=== PATIENT | female | born 1935 | race Caucasian/White ===

== ENCOUNTER 2017-02-14 17:11 | Emergency (ER) | payer MEDICARE ==
[~2017-02-14] VITALS: Ht 162.6 cm; Wt 57.7 kg
[2017-02-14] MEDS ORDERED: NS 500 ML IV ONE (17:45)
[2017-02-14] MEDS ORDERED: KETOROLAC 30 MG/ML VIAL (J1885) IV ONE (17:45)
[2017-02-14] MEDS ORDERED: ONDANSETRON 4MG/2ML VIAL (J2405) IV ONE (17:45)
[2017-02-14 18:14] LABS: BASO % 0.2 % (0.0-1.0); EOS % 0.4 % (0.0-3.0); LARGE UNSTAINED CELL # 0.1 K/mm3 (0.0-0.4); LARGE UNSTAINED CELL % 0.4 % (0.0-4.0); LYMPH # 0.7 K/mm3 (1.5-4.5); LYMPH % 5.8 % (24.0-44.0); MEAN CORPUSCULAR HEMOGLOBIN 32.2 pg (27.0-33.0); MEAN CORPUSCULAR HGB CONC 32.2 g/dl (32.0-36.5); MEAN CORPUSCULAR VOLUME 99.9 fl (80.0-96.0); MONO # 0.3 K/mm3 (0.0-0.8); MONO % 2.4 % (0.0-5.0); NEUTROPHILS # 10.4 K/mm3 (1.8-7.7); NEUTROPHILS % 90.8 % (36.0-66.0); PLATELET COUNT, AUTOMATED 199 k/mm3 (150-450); RED CELL DISTRIBUTION WIDTH 12.6 % (11.5-14.5); WHITE BLOOD COUNT 11.4 K/mm3 (4.0-10.0)
[2017-02-14 18:33] LABS: ALBUMIN 3.5 GM/DL (3.2-5.2); ALKALINE PHOSPHATASE 98 U/L (45-117); ALT/SGPT 105 U/L (12-78); AMYLASE 47 U/L (25-115); ANION GAP 8 MEQ/L (8-16); AST/SGOT 180 U/L (15-37); BILIRUBIN,DIRECT 0.4 MG/DL (0.0-0.2); BLOOD UREA NITROGEN 15 MG/DL (7-18); CARBON DIOXIDE LEVEL 24 MEQ/L (21-32); CHLORIDE LEVEL 106 MEQ/L (98-107); GLOMERULAR FILTRATION RATE > 60.0 (>32); GLUCOSE, FASTING 133 MG/DL (83-110); POTASSIUM SERUM 3.9 MEQ/L (3.5-5.1); SODIUM LEVEL 138 MEQ/L (136-145); TOTAL PROTEIN 7.4 GM/DL (6.4-8.2)
--- NOTE | 2017-02-14 18:50 | REP ---
Clinical: Right upper quadrant pain. Technique: Real time alan scale ultrasound examination using curved array transducer. Findings: With the exception of mild intrahepatic biliary ductal dilatation, the liver and pancreas are normal in contour, size, and echogenicity without focal hepatic or pancreatic lesions identified. The gallbladder is distended measuring 10.9 cm in length and 4.8 cm diameter demonstrating few layering gallstones, mild wall thickening to 3.5 mm and sonographic Estrada's sign. The common bile duct is dilated to 9.3 mm and findings suggest acute cholecystitis. Incidental note is made of a 4 mm anterior wall gallbladder polyp. Right kidney is normal in reniform shape without hydronephrosis and measures 10.4 x 4.4 x 3.8 cm. No ascites. Impression: 1. Findings related to the gallbladder and biliary system as described above suggest acute cholecystitis and require clinical correlation. 2. Incidental 4 mm gallbladder polyp. Signed by Sal Ryan MD 02/14/2017 06:42 P
[2017-02-14 21:42] VITALS: BP 124/65
[2017-02-14] MEDS ORDERED: ZOFR4TAB3 PO (21:43)
[2017-02-14] MEDS ORDERED: KETO10TAB PO (21:43)
--- NOTE | 2017-02-15 03:38 | ER ---
DATE OF CONSULTATION: 02/14/2017 REASON FOR CONSULTATION: Possible acute cholecystitis. 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 The patient reported that she had been in generally excellent health. She awakened on the morning of 02/14 and had a light breakfast consisting of a cup and a half of coffee and a piece of raisin cinnamon toast. Shortly thereafter she developed some epigastric to right upper quadrant abdominal discomfort. As this worsened somewhat, she developed some nausea and had episodes of vomiting. As her stomach was largely empty, she had primarily dry heaves. Around noon, she noted that the nausea and vomiting had resolved, though the pain had persisted. She described a constant aching sensation with a fullness. She tried a few crackers to see if this would help settle her stomach and developed additional nausea and vomiting with persistence of the pain. She presented to the emergency department at approximately 1711. She was evaluated with some laboratory studies and had a gallbladder ultrasound obtained. The ultrasound showed some findings suggestive of acute cholecystitis and I was asked to evaluate the patient. The patient reports that she currently has no pain. She has had no prior episodes of similar discomfort. She denies any history of hepatitis, pancreatitis, or jaundice. ALLERGIES: The patient denies any known drug allergies, though she avoids aspirin because of a past history of ulcer. MEDICATIONS: The patient is on no prescription or [id number] medications. 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 MEDICAL HISTORY: The patient reported a history of ulcer in the distant past. She denies any cardiac, respiratory, endocrine, gastrointestinal, or genitourinary problems. SOCIAL HISTORY: The patient is accompanied by her . She lives part of the year in [place], but spends [place]ins in [place] and part of the year in [place]. She is a never smoker and reports alcohol intake of one glass of wine per day and she prefers Pinot Grigio. 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 FAMILY HISTORY: The patient reports that her son has had gallbladder problems requiring a cholecystectomy. REVIEW OF SYSTEMS: The complete system review is negative. PHYSICAL EXAMINATION: Reveals that patient's most recent vital signs show a temperature of 97.8 with a pulse of 63, respirations of 16 and a blood pressure of 158/79. Room air pulse oximetry was 99%. Patient is sitting up on a stretcher, alert and cooperative and appears comfortable. She currently denies any pain and has no nausea at this time. Skin is warm and dry. Sclerae are anicteric. Mucous membranes are moist. The neck is thin and supple and she has no carotid bruits. Heart exam shows a regular rate and rhythm. The lungs are clear to auscultation. Breast exam is deferred. Abdomen is thin and flat. She has an old low midline scar. There is no sign of hernia. She has bowel sounds present. There is no tenderness to percussion. On palpation, there is no tenderness identified. She has no palpable mass. Extremities are thin without edema and she has palpable radial and dorsalis pedis pulses bilaterally. LABORATORY STUDIES: From approximately 1800 show a white count of 11, hemoglobin 15, hematocrit of 48 and a platelet count of 199,000. Differential shows 91% neutrophils and 6% lymphocytes. Chemistry profile shows normal electrolytes, BUN, creatinine and a glucose of 133. Total bilirubin is 1.0 with a direct of 0.4, her AST is 180 and her ALT 105, and the alkaline phosphatase is 98. Amylase and lipase are normal. Gallbladder ultrasound was performed. I reviewed the images personally and they were read by Dr. Ryan of radiology. The radiologist reported some mild gallbladder wall thickening to 3.5 mm with some small stones in the dependent portion of the gallbladder. The gallbladder appeared distended to 10.9 cm and there appeared to be a sonographic Estrada's sign. The common bile duct was on one measurement dilated to 9.3 mm. An anterior wall gallbladder polyp 4 mm in diameter was identified. On my review of the images, the thickness of the gallbladder wall is certainly not significantly thickened. There are some small stones seen. IMPRESSION: First episode of right upper quadrant pain with possible gallbladder wall thickening and gallstones by ultrasound and mild elevations of the SGOT and SGPT. The patient's pain has currently resolved. IMPRESSION AND PLAN: Certainly this episode sounds consistent with an attack of biliary colic. It was certainly more prolonged in duration than might normally be expected, the pain starting at 9 a.m. and going until about 1800. She has slight elevations of the liver function tests, but only the SGOT and SGPT and her alkaline phosphatase and total bilirubin are normal. The elevations are mild. The ultrasound findings are definite for stones, but somewhat softer findings of gallbladder wall thickening. She has no tenderness now and no pain. I discussed with her that this probably represented just an unusually prolonged episode of biliary colic. I advised her that there is a chance, though I think it is unlikely, that this represented passage of a stone which caused symptoms and mild transaminase elevations, but has now also become asymptomatic. Given her current lack of symptoms, I think it would be safe for her to be discharged from the hospital. I advised her that we cannot predict if and when she might develop another attack nor can we do anything to prevent that short of performing a cholecystectomy. At this point, the patient does not wish to proceed with surgery. I advised her that she will be the first one to know if she has another attack and if so, she should return. I advised her that she should feel free to followup with me in the office if she wishes to pursue treatment. KATERINA
--- NOTE | 2017-02-15 19:24 | ECGEPIP ---
Stationary ECG Study [facility] - ED Test Date: 2017-02-14 Pat Name: RAYMOND SHORE Department: Room: - Gender: F Records Custodian: ct : 1935 Requested By: Shashank Matos PA-C Order Number: [id number] Reading MD: Charles Bernard Measurements Intervals [place] Rate: 55 P: 62 MT: 157 QRS: -18 QRSD: 83 T: 62 QT: 452 QTc: 434 Interpretive Statements SINUS BRADYCARDIA POSSIBLE LEFT ATRIAL ENLARGEMENT MODERATE ST DEPRESSION NO PRIORS Electronically Signed On 02-15-2017 19:23:58 EDT by Charles Bernard
== END 2017-02-14 21:58 | disposition home or self-care (01) ==
LOC: M ED 17:11 → CANBEDREQ 21:41 → M ED 21:58
DX: K80.10 Calculus of gallbladder with chronic cholecystitis without obstruction (principal)
CPT/HCPCS: 36415; 76705; 80048; 80076; 82150; 82550; 82553; 83690; 84484; 85025; 93005; 96374; 96375; 99284; J1885; J2405